=== PATIENT | female | born 1990 | race African-American/Black ===

== ENCOUNTER 2017-08-01 02:22 | Observation (INO) | payer OTHER ==
[~2017-08-01] VITALS: Ht 157.5 cm; Wt 73.9 kg
[2017-08-01 04:32] LABS: ABSOLUTE BASOPHIL COUNT 0 /CUMM (0.0-0.2); ABSOLUTE EOSINOPHIL COUNT 0.1 /CUMM (0.0-0.7); ABSOLUTE GRANULOCYTE CT 5.2 /CUMM (1.4-6.5); ABSOLUTE LYMPH COUNT 1.6 /CUMM (1.2-3.4); ABSOLUTE MONOCYTE COUNT 0.9 /CUMM (0.10-0.60); BASOPHIL % 0.3 % (0.0-2.0); EOSINOPHIL % 0.9 % (0-5); GRANULOCYTE % 66.5 % (42.2-75.2); HEMATOCRIT 32.5 % (37-47); MEAN CORPUSCULAR HGB CONC 33.1 G/DL (33.0-37.0); MEAN CORPUSCULAR VOLUME 78.7 FL (81.0-99.0); MEAN PLATELET VOLUME 8.7 FL (7.4-10.4); PLATELET COUNT 271 /CUMM (130-400); RBC DISTRIBUTION WIDTH 14.4 % (11.5-14.5); RED BLOOD CELL CT 4.14 /CUMM (4.20-5.40); WHITE BLOOD CELL COUNT 7.8 /CUMM (4.8-10.8)
[2017-08-01 05:31] VITALS: BP 116/73
[2017-08-01] MEDS ORDERED: PRENATAL TABLE1 EAC2 PO (07:55)
== END 2017-08-01 09:10 ==
LOC: CBCO 02:22 → GNO 04:00
PROVIDERS: Specialist
DX: O47.1 False labor at or after 37 completed weeks of gestation (principal); Z3A.41 41 weeks gestation of pregnancy
CPT/HCPCS: 36415; 81003; 87086; G0378; G0463

== ENCOUNTER 2017-08-02 11:44 | Inpatient (IN) | payer OTHER ==
[~2017-08-02] VITALS: Ht 160 cm; Wt 73.9 kg
[~2017-08-02 11:44] MED LIST: PRENATAL TABLE1 EAC2 PO
[2017-08-02 14:16] VITALS: BP 126/87
--- NOTE | 2017-08-02 15:01 | History & Physical ---
General Information and HPI MD Statement: I have seen and personally examined YENNI HUSTON and documented this H&P. The patient is a 26 year old female at [41] weeks and [1] days gestation who presented with a chief complaint of [labor ]. History of Present Illness: 26yo G1 at 41 weeks in active labor. care significant for transfer fro [facility]. Poditive GBS colonization. 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 EENTM: Reports: no symptoms. Cardiovascular: Reports: no symptoms. Respiratory: Reports: no symptoms. GI: Reports: no symptoms. Genitourinary: Reports: no symptoms. Musculoskeletal: Reports: no symptoms. Skin: Reports: no symptoms. Neurological/Psychological: Reports: no symptoms. Hematologic/Endocrine: Reports: no symptoms. Immunologic/Allergic: Reports: no symptoms. All Other Systems: Reviewed and Negative Exam & Diagnostic Data Last 24 Hrs of Vital Signs/I&O Vital Signs Date Time Temp Pulse Resp B/P B/P Pulse O2 O2 Flow FiO2 Mean Ox Delivery Rate 08/02 1416 126/87 Intake & Output 08/02 1600 08/02 0800 08/02 0000 Intake Total Output Total Balance Patient 163 lb Weight Obstetric Exam Wgt Gained During : 30 Pelvimetry: gynecoid Dilation (cm): 4 Effacement (%): 80 Station: -1 Membranes: intact Fluid: unknown Fundal Height (cm): 40 Multiple Gestation? No Contractions: q2-4 Infant #1 - FHR Baseline: 130 Category: 1 Estimated Weight: 7.5 Presentation: cephalic Patient for Induction? No Physical Exam: HEENT: NCAT Chest: CTA CV: nl S1S2 Abd: gravid, cephalic 7.5 Ext: no c/c/e Neuro: nonfocal Labs Blood Type & Rh: O pos Antibody Screen: neg Hct/Hgb & Platelets #1: 39374 Hct/Hgb & Platelets #2: 300 Rubella: imm VDRL #1: nr VDRL #2: nr HbsAg: neg HIV #1: neg HIV #2 neg 1 Hr P Group B Strep: positive Initial Ultrasound: wnl Anatomy Ultrasound: wnl Ultrasound for EFW: na Genetic Testing: neg Assessment/Plan Assessment/Plan: active labor at 41 weeks GBS, PCN all IV Clinda Expectant Mgmt As Ranked By This Provider Problem List: 1. Core Measures Venous Thromboembolism VTE Risk Factors / No Mechanical VTE Prophylaxis d/t Early Ambulation No VTE Pharm Prophylaxis d/t Bleeding (Active)
--- NOTE | 2017-08-02 18:12 | PN- OBGYN ---
Surgical Brief Attending Note Brief Attending Note: Assumed responsibility for this patient at [address] Black. I reviewed her chart and HandP and saw the patient. Para 0 at 41 weeks in active labor with complicated by GBBS colonization. Vitals stable EFW 3400 grams Labor. Was 4 cm at 1400 and now is 6/100/-2 intact forewaters. Catagory 1 tracing and contractions q2-3 Pain mgmt discussed. She was counseled on Nitrous and would like to try same. Will allow this for labor analgesia at present but if not successful for epidural. GBBS. Started on Clindamycin for same as PCN allergy. Q8 dosing. \ Potential for meconium stained fluid being 10-20%. If so than patient was informed that Peds will be called in for delivery. Gynecoid pelvis and allow spontaneous labor. Reassess for cervical change in 2- 4 hours or as needed. Hct of 32 and platelets 271 and O positive in blood bank.
--- NOTE | 2017-08-02 22:18 | PN- OBGYN ---
Surgical Brief Attending Note Brief Attending Note: Events since last note. Was 6 cm and now 8 cm/100/-1 After epidural did have Catagory 2 tracing related to hypotension Resolved with phenylephrine. Now BP normalized Catagory 1 tracing urine output good since nguyen placement. Continue expectant management. GBBS positive and now s/p second dose.
--- NOTE | 2017-08-03 02:48 | PN- OBGYN ---
Surgical Brief Attending Note Brief Attending Note: Came to room at assess patient as last was checked at 0030. Progress has been protracted however progress was made Now rim and 0 station however persistant catagory 2 tracing with most recent prolonged decelerations to 50s with recovery. In the setting of meconium stained fluid and delivery not amenable to pushing nor operative vaginal delivery in my opinon this is NRFS and delivery to be done via csection. Rim/0 station/ROT/no molding. Patient counseled on risks of procedure including pain, infection, bleeding, damage to bladder and or bowel and vte and wound complications and future risks of previa. Ample time for questions given. Antibiotic prophylaxis with clindamycin and gentamicin as PCN allergy.
--- NOTE | 2017-08-03 04:44 | Operative Report ---
Operative/Inv Procedure Report Surgery Date: 08/03/17 Name of Procedure: LTCS Pre-Operative Diagnosis: Nonreassuring status Post-Operative Diagnosis: Same Right occiput posterior Estimated Blood Loss: 800 cc Surgeon/Body Masker: Jayme Martel MD, X. MD Anesthesia: Epidural Monitors: Per Anesthesiology IV Fluids: 1500 cc Urine Output: 200 cc clear urine Drains: Teresa to gravity Specimens: Placenta Cord gases Microbiology: Urine culture Complications: None Condition: Mother stable to RR stable to RR Operative Indication: 26 year old female at [id number] with nonreasuring status at 9 cm and ROP rotation. Patient was counseled on operative risks including pain, bleeding, infection, vte, wound complications. All questions answered. Operative/Procedure Note Note: Patient taken to OR and prepped in usual sterile fashion. Time out completed prior to procedure. Vagina was prepped with betadine with PROM status. Antibiotic prophylaxis of clindamycin and gentamicin given Skin incision made with scalpel and taken down to fascia. Fascia opened and extended laterally using bovie. Superior and inferior fascial edges were bluntly and sharply dissected from rectus muscle. Peritoneum entered bluntly and extended superiorly and inferiorly with good visualization of the bladder. Bladder blade introduced and bladder flap created. Hysterotomy incision low transverse incision made and noted to be ROP and nuchal x 1. Reduced and delivered and given to Pediatric provider. Cord gases done Oxytocin given for uterine tonicity and placenta removed in manual fashion and uterus cleared of clots and debris. Uterus closed with 2 layers of O vicryl. Midline extension closed with same. Normal tubes uterus ovaries and no adhesions noted. Abdomen irrigated and uterus replaced into abdomen. Cassandra 1 gram applied to hysterotomy incision. Hemostasis noted. Peritoneum reapproximated in manual fashion and rectus muscle reapproximated with 2-0 vicryl. Fascia closed with O vicryl. Subcutaneous tissue reapproximated with 3-0 plan and skin closed with emeka. Instrument and lap count correct x 2. Urine draining clear urine at end of procedure. Patient to RR in stable condition to RR in stable condition
--- NOTE | 2017-08-03 10:46 | PN- Post Delivery/GYN ---
Subjective Subjective: NO COMPLAINTS BREAST FEEDING WELL Objective Last 24 Hrs of Vital Signs/I&O Vital Signs Date Time Temp Pulse Resp B/P B/P Pulse O2 O2 Flow FiO2 Mean Ox Delivery Rate 08/02 1416 126/87 Physical Exam: PE THIN BF IN NAD ABD SOFT NT INCISION CDI EXT -EDEMA -HOMANS Assessment/Plan Assessment/Plan ASSESS S/PC/S PLAN CONT PPC
[2017-08-04 08:57] LABS: ABSOLUTE BASOPHIL COUNT 0 /CUMM (0.0-0.2); ABSOLUTE EOSINOPHIL COUNT 0.1 /CUMM (0.0-0.7); ABSOLUTE GRANULOCYTE CT 11.2 /CUMM (1.4-6.5); ABSOLUTE LYMPH COUNT 1.6 /CUMM (1.2-3.4); ABSOLUTE MONOCYTE COUNT 1.2 /CUMM (0.10-0.60); BASOPHIL % 0.3 % (0.0-2.0); EOSINOPHIL % 0.4 % (0-5); GRANULOCYTE % 79.5 % (42.2-75.2); MEAN CORPUSCULAR HGB 26.6 PG (27.0-31.0); MEAN CORPUSCULAR HGB CONC 33.9 G/DL (33.0-37.0); MEAN CORPUSCULAR VOLUME 78.6 FL (81.0-99.0); MEAN PLATELET VOLUME 8.8 FL (7.4-10.4); PLATELET COUNT 232 /CUMM (130-400); RBC DISTRIBUTION WIDTH 14.6 % (11.5-14.5); RED BLOOD CELL CT 3.26 /CUMM (4.20-5.40)
[2017-08-04 09:09] LABS: HEMATOCRIT 25.6 % (37-47); WHITE BLOOD CELL COUNT 14.1 /CUMM (4.8-10.8)
--- NOTE | 2017-08-04 12:36 | PN- Post Delivery/GYN ---
Subjective Subjective: No complaints Review of Systems: Negative Objective Last 24 Hrs of Vital Signs/I&O As per paper chart Physical Exam: T black female in no apparent distress Abdomen soft nontender soft distention Incision clean dry and intact Extremities negative edema negative Homans fundus firm nontender lochia minimal Assessment/Plan Assessment/Plan Assessment status post section for face presentation meconium Discharge home in a.m. instructions given
[2017-08-04] MEDS ORDERED: PERCOCET 5-3251 EACH PO (12:37)
[2017-08-04] MEDS ORDERED: IBUPROFEN800 M1 PO (12:37)
== END 2017-08-06 11:15 | DRG 766 ==
LOC: CBCO 11:44 → GNO 14:11
PROVIDERS: Obstetrics & Gynecology
PROC: 10D00Z1 Extraction of Products of Conception, Low, Open Approach (ICD-10-PCS; principal; 2017-08-03)
DX: O76 Abnormality in fetal heart rate and rhythm complicating labor and delivery (principal); Z37.0 Single live birth; O99.824 Streptococcus B carrier state complicating childbirth; Z3A.41 41 weeks gestation of pregnancy
CPT/HCPCS: GNOP; GNOS; 36415; 87086; J0131; J0690; J1580; J1650; J1885; J3105; J7120